=== PATIENT | male | born 1945 | race Caucasian/White ===

== ENCOUNTER 2022-03-26 19:28 | Emergency (ER) | payer OTHER ==
[~2022-03-26] VITALS: Ht 185.4 cm; Wt 95.3 kg
--- NOTE | 2022-03-26 19:28 | NUR ---
76 y/o male presents to ED via EMS c/o SOB, cough , fall , febrile, SOB. temp 101.2 dyspnea, generalized pain and weakness, LUONG w/o difficulty.
[2022-03-26] MEDS ORDERED: NS 1000ML 1,000 ML ONE ×2 (19:57→22:37)
--- NOTE | 2022-03-26 20:05 | DIREP ---
PROCEDURE:CHEST 1 VIEW COMPARISON:None. INDICATIONS:Fever FINDINGS: LUNGS/PLEURA:Extensive airspace opacity in the right mid and lower lung consistent with pneumonia. Bullous changes in the right upper lung. VASCULATURE:Normal. Unremarkable pulmonary vasculature. CARDIAC:Normal. No cardiac silhouette abnormality or cardiomegaly. MEDIASTINUM:Calcification in the aortic arch. BONES:Normal. No fracture or visible bony lesion. OTHER:Negative. CONCLUSION:Extensive airspace opacity in the right mid and lower lung consistent with pneumonia. Dictated by: Gerard Urias M.D. on 03/26/2022 at 08:03 PM
[2022-03-26 20:12] VITALS: BP_SYST 60; BP_SYST 96; BP_DIAS 60; BP_DIAS 96
[2022-03-26 20:17] LABS: BASOPHIL % 0.1 % (0.0-0.2); EOSINOPHIL % 0.1 % (0.0-5.0); LYMPHOCYTES # 0.27 10^3/uL1 (1.0-4.8); LYMPHOCYTES % 2.6 % (24.0-44.0); MEAN CORP HGB 30.9 pg (26-34); MONOCYTES # 0.7 10^3/uL (0.3-0.8); MONOCYTES % 6.3 % (5.0-12.0); NEUTROPHIL # 9.3 10^3/uL (1.8-7.7); NEUTROPHILS % 90.7 % (41.0-85.0); PLATELET COUNT 123 10^3/uL (150-400); RED CELL DISTRIBUTION WIDTH 13.9 % (11.5-14.5)
[2022-03-26 20:24] LABS: ABG PCO2 62.4 mmHg (35.0-45.0); BE(B) -1.3 mmol/L (-2.0-2.0); HCO3act 27.4 mmol/L (22.0-26.0); pO2 46.2 mmHg (80.0-100.0)
[2022-03-26] MEDS ORDERED: DUO 0.5-3(2.5) MG/3 ML IH STA (20:35)
[2022-03-26] MEDS ORDERED: DECADRON IH STA (20:35)
[2022-03-26] MEDS ORDERED: NS 1000ML 1,000 ML IV STA ×2 (20:35→22:39)
[2022-03-26] MEDS ORDERED: DECADRON ONE (20:36)
[2022-03-26] MEDS ORDERED: DUO 0.5-3(2.5) MG/3 ML IH ONE (20:36)
[2022-03-26 20:38] LABS: LYMPHOCYTE 2 % (25-36); MONOCYTE 4 % (3-9); SEGMENTED NEUTROPHILS 94 % (31-76)
[2022-03-26 20:46] LABS: CARBON DIOXIDE 29.9 mmol/L (20.0-32)
[2022-03-26] MEDS ORDERED: ZITHROMAX 500 MG in NS 250ML 250 ML IV STA (20:54)
[2022-03-26] MEDS ORDERED: ROCEPHIN 2,000 MG in NS 100ML 100 ML IV STA (20:54)
--- NOTE | 2022-03-26 21:00 | PCM.EKG ---
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
--- NOTE | 2022-03-26 21:18 | DIREP ---
PROCEDURE:XRAY HIP MIN 2VW-RT COMPARISON:None. INDICATIONS:Pain S/P fall FINDINGS: BONES:Normal. JOINTS:Normal. SOFT TISSUES:Arterial calcifications. OTHER:No additional findings. CONCLUSION:No fractures. Dictated by: Gerard Urias M.D. on 03/26/2022 at 09:17 PM
--- NOTE | 2022-03-26 22:25 | ER.PDOC ---
General Chief Complaint: Requesting Medical Care Stated Complaint: FALL Time seen by MD: 20:00 Source: patient, family, EMS, EMS notes reviewed Exam Limitations: no limitations History of Present Illness Initial Comments Patient fell in front of his porch and was found laying down. He complains of right hip pain. He does not remember hitting his head. He says that he has been very weak so he lost his balance and fell. When EMS arrived on scene, patient had a temperature 101.2. He received a gram of Tylenol and IV fluids because his blood pressure was also low and was brought here for further management. Patient was 73% on room air. Occurred: just prior to arrival Where: home Severity: moderate Injuries/Pain Location: lower extremity Context: Lost Balance Loss of Consciousness: Unsure Associated Symptoms: other (weakness) Past Medical History Medical History: cancer, COPD, other Surgical History: no surgical history Family History Significant Family History: no pertinent family hx Social History Smoking: greater than 1 pack/day Alcohol Use: none Review of Systems Constitutional: see HPI Respiratory: no symptoms reported Cardiovascular: no symptoms reported Gastrointestinal: no symptoms reported Musculoskeletal: see HPI All Other Systems: Reviewed and Negative Physical Exam General Appearance: WD/WN, Moderate Distress Head: No Evidence of Injury Eyes: bilateral eye normal inspection Neck: Tenderness Cardiovascular/Respiratory: Regular Rate, Rhythm, No M/R/G, Normal Peripheral Pulses, Tachycardia, Rales, Wheezing Gastrointestinal: Normal Bowel Sounds, No Organomegaly, No Pulsatile Mass, Non Tender, Soft Back: Normal Inspection, No CVA Tenderness, No Vertebral Tenderness Extremities: No Evidence of Injury, Normal Range of Motion, Non-Tender, No Pedal Edema 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 (03/26/22 19:49) Blood Culture (03/26/22 19:49) Ekg-Routine (03/26/22 19:49) Xr Chest 1v (03/26/22 19:49) Troponin I High Sensitivity (03/26/22 19:49) D-Dimer (03/26/22 19:49) Lactic Acid(Ml) (03/26/22 19:49) Procalcitonin (03/26/22 19:49) Influenza A&B (03/26/22 19:49) Covid19 Antigen Nicolasa Sofiya (03/26/22 19:49) Ipratropium/Albuterol Sulfate (Duo 0.5-3 (03/26/22 20:36) Dexamethasone Sodium Phosp/Pf (Decadron) (03/26/22 20:36) Xr Hip Rt 2v W/Pelvis (03/26/22 20:35) Ct Head Wo Contrast (03/26/22 20:35) Ct Cervical Spine (03/26/22 20:35) 0.9 % Sodium Chloride (Ns 1000ml) (03/26/22 20:35) Ipratropium/Albuterol Sulfate (Duo 0.5-3 (03/26/22 20:35) Dexamethasone Sodium Phosp/Pf (Decadron) (03/26/22 20:35) Cta Chest (03/26/22 20:53) Ceftriaxone Sodium (Rocephin) (03/26/22 20:54) Azithromycin (Zithromax) (03/26/22 20:54) 0.9 % Sodium Chloride (Ns 1000ml) (03/26/22 22:37) Ceftriaxone Sodium (Rocephin) (03/26/22 22:39) 0.9 % Sodium Chloride (Ns 100ml) (03/26/22 22:39) 0.9 % Sodium Chloride (Ns 1000ml) (03/26/22 22:39) 0.9 % Sodium Chloride (Ns 250ml) (03/26/22 23:01) Vital Signs Date Time Temp Pulse Resp B/P (MAP) Pulse Ox O2 Delivery O2 Flow Rate FiO2 03/26/22 22:18 88 26 96 S/T 45 03/26/22 20:55 22 92 03/26/22 20:55 114 26 94 Nasal Cannula* 2 28 03/26/22 20:42 114 26 84 Nasal Cannula* 2 28 03/26/22 20:12 98.6 114 26 60/96 (84) 70 Room Air* 0 21 03/26/22 20:12 98.6 114 26 03/26/22 20:12 98.6 114 26 70 Administered Medications Medications (Trade) Dose Ordered Sig/Irena Route PRN Reason Start Time Stop Time Status Last Admin Dose Admin Albuterol/ Ipratropium (Duo 0.5-3(2.5) Mg/3 ml) 3 ml STAT STAT IH 03/26/22 20:35 03/26/22 20:39 DC 03/26/22 20:41 3 ML Ceftriaxone Sodium 2000 mg/ Sodium Chloride 100 ml @ 100 mls/hr STAT STAT IV 03/26/22 20:54 03/26/22 21:53 UNV 03/26/22 22:47 100 MLS/HR Sodium Chloride 1,000 ml @ 1,200 mls/hr Q50M STAT IV 03/26/22 20:35 03/26/22 21:24 DC 03/26/22 19:00 1,200 MLS/HR Sodium Chloride 1,000 ml @ 1,200 mls/hr Q50M STAT IV 03/26/22 22:39 03/26/22 23:28 03/26/22 22:56 1,200 MLS/HR Laboratory Tests Test 03/26/22 00:00 03/26/22 19:45 03/26/22 20:00 03/26/22 20:20 Influenza Type A Antigen NEGATIVE (NEG) Influenza Type B Antigen NEGATIVE (NEG) SARS-CoV-2 Antigen (Rapid) NEGATIVE (NEGATIVE) White Blood Count 10.3 10^3/uL (4.5-11.0) Red Blood Count 5.12 10^6/uL (4.50-5.90) Hemoglobin 15.8 g/dL (13.9-16.3) Hematocrit 51.3 % (37.0-53.0) Mean Corpuscular Volume 100.2 fL (78-100) H Mean Corpuscular Hemoglobin 30.9 pg (26-34) Mean Corpuscular Hemoglobin Concent 30.8 g/dL (33-36.5) L Red Cell Distribution Width 13.9 % (11.5-14.5) Platelet Count 123 10^3/uL (150-400) L Mean Platelet Volume 9.0 fL (7.8-11.0) Neutrophils (%) (Auto) 90.7 % (41.0-85.0) *H Lymphocytes (%) (Auto) 2.6 % (24.0-44.0) *L Monocytes (%) (Auto) 6.3 % (5.0-12.0) Neutrophils # (Auto) 9.3 10^3/uL (1.8-7.7) H Lymphocytes # (Auto) 0.27 10^3/uL1 (1.0-4.8) L Monocytes # (Auto) 0.7 10^3/uL (0.3-0.8) Absolute Immature Granulocyte (auto 0.02 10^3 u/L (0-2) Absolute Eosinophils (auto) 0.0 10^3/uL (0.0-0.2) Immature Granulocytes % 0.20 % (0.00-0.50) Eosinophils % 0.1 % (0.0-5.0) Basophils % 0.1 % (0.0-0.2) Basophils # 0.0 10^3/uL (0.0-0.1) Prothrombin Time 10.9 SEC (9.1-11.5) Prothrombin Time INR (Non-Therap) 1.1 Activated Partial Thromboplast Time 24.5 SEC (22.5-33.1) D-Dimer 20.67 mg/L (0.19-0.49) *H Sodium Level 141 mmol/L (132-145) Potassium Level 3.8 mmol/L (3.6-5.2) Chloride Level 105.0 mmol/L (96-109) Carbon Dioxide Level 29.9 mmol/L (20.0-32) Anion Gap 9.9 Blood Urea Nitrogen 31 mg/dL (7-18) H Creatinine 1.29 mg/dL (0.59-1.40) Estimated GFR () 65.3 (>/=60) Est GFR (CKD-EPI)(Non-Afr [place]) 54.0 (>/=60) BUN/Creatinine Ratio 24.0 Glucose Level 155 mg/dL (70-110) H Lactic Acid Level 2.0 mmol/L (0.5-1.9) H Calcium Level 8.9 mg/dL (8.4-10.5) Total Bilirubin 1.6 mg/dL (0.2-1.0) H Aspartate Amino Transferase (AST) 24 U/L (0-35) Alanine Aminotransferase (ALT) 19 U/L (12-78) Alkaline Phosphatase 102 U/L (50-136) Total Creatine Kinase 508 U/L (39-308) H Creatine Kinase MB 5.4 ng/mL (0.5-3.6) H Troponin I High Sensitivity 26 ng/L (0-75) Pro-B-Type Natriuretic Peptide 1387 pg/mL (0-450) H Total Protein 6.9 g/dL (6.4-8.2) Albumin 2.9 g/dL (3.4-5.0) L Globulin 4.0 Albumin/Globulin Ratio 0.725 Procalcitonin 1.87 ng/mL (0.05-0.5) *H Blood Gas Sample Site RT RADIAL ARTERY Blood pH 7.260 (7.350-7.450) Blood Gas PCO2 62.4 mmHg (35.0-45.0) H Blood Gas PO2 46.2 mmHg (80.0-100.0) L Blood Gas HCO3 27.4 mmol/L (22.0-26.0) H Blood Gas Base Excess -1.3 mmol/L (-2.0-2.0) Ceasar Test POSITIVE Arterial Blood Oxygen Saturation 74.2 % (94.0-97.00) L Deoxyhemoglobin 24.8 % (0.0-5.0) H Carboxyhemoglobin 3.4 % (0.0-3.9) Methemoglobin 0.4 % (0.00-5.0) Total Hemoglobin 15.7 % (12.0-17.8) Total Oxygen Concentration 15.7 % (13.5-17.5) Blood Gas Temperature 37.0 Oxygen Delivery Method NASAL CANNULA FiO2 28.0 % (20-101) Total Carbon Dioxide 29.3 mmol/L (23-27) H Segmented Neutrophils 94 % (31-76) H Lymphocytes 2 % (25-36) L Monocytes 4 % (3-9) Platelet Estimate SLIGHTLY DECREASED Platelet Morphology NORMAL Progress Progress CTA chest: No evidence for pulmonary embolism. 2. Patchy areas of consolidation scattered throughout the right lung with milder infiltrates involving the left lower lobe. 3. Questionable 8 x 7 mm pulmonary nodule left upper lobe .Please consider the following recommendations after clinical assessment of risk factors. For 6-8 mm nodules: In low risk patients, initial follow-up CT at 6-12 months, then 18-24 months if no change. In high risk patients, initial follow-up CT at 3-6 months, then 9-12 and 24 months if no change. 4. Dense coronary vascular calcifications. EKG/XRAY/CT/US EKG: NSR EKG Comments: HR 106, sinus tachycardia ER DEPART Departure Time of Disposition: 23:07 Disposition: [address] [place] [address] Impression: Primary Impression: Sepsis Additional Impressions: Acute respiratory failure with hypoxia Pneumonia COPD with exacerbation Generalized weakness Multiple contusions Condition: Critical Referrals: [facility] REVIEW MANAGER (PCP) PRIMARY CARE PROVIDER Comments Transfer to [place] ED for Dr. Franks Duration or Time Spent with Pa: 60 min Critical Care Note Total Time (mins): 60 Problem Qualifiers Primary Impression: Sepsis Sepsis type: sepsis due to unspecified organism Sepsis acute organ dysfunction status: unspecified Qualified Codes: A41.9 - Sepsis, unspecified organism Additional Impressions: Pneumonia Pneumonia type: due to unspecified organism Laterality: unspecified laterality Lung location: unspecified part of lung Qualified Codes: J18.9 - Pneumonia, unspecified organism DANYELLE MEDINA MD Mar 26, 2022 22:25
--- NOTE | 2022-03-26 22:29 | DIREP ---
PROCEDURE:CT HEAD OR BRAIN W/O CONTRAST COMPARISON:None. INDICATIONS:pain S/P fall TECHNIQUE:CT images were created without intravenous contrast. FINDINGS: VENTRICLES:The ventricles are normal in size and configuration. CEREBRUM:Normal cerebral morphology with appropriate villa white matter differentiation. CEREBELLUM:Negative. BRAINSTEM:Negative. BASAL CISTERNS:Negative. HEMORRHAGE (Vol L*W*H*.52):No MASS LESION:No ACUTE INFARCT:No SKULL:Normal. SINUSES:Normal. OTHER:None CONCLUSION:Normal examination. Dictated by: Zach Baum MD on 03/26/2022 at 10:26 PM
--- NOTE | 2022-03-26 22:33 | DIREP ---
PROCEDURE:CT CERVICAL SPINE WITHOUT CONTRAST TECHNIQUE:Axial cuts were obtained through the cervical spine. The images were viewed at bone and soft tissue settings. Sagittal and coronal reconstructions are provided. COMPARISON:None. INDICATIONS:pain FINDINGS: ALIGNMENT:Normal. VERTEBRAE:Normal. PARASPINAL AREA:Normal. OTHER:No additional findings. CERVICAL DISC LEVELS Mild C4-5 and C5-6 degenerative disc space narrowing with minimal spondylosis. Right C4-5 and C5-6 facet arthropathy. CONCLUSION: 1. No fractures or subluxations. 2. Mild C4-5 and C5-6 degenerative disc disease. Dictated by: Zach Baum MD on 03/26/2022 at 10:30 PM
[2022-03-26] MEDS ORDERED: NS 100ML 100 ML IV ONE (22:39)
[2022-03-26] MEDS ORDERED: ROCEPHIN ONE (22:39)
--- NOTE | 2022-03-26 22:40 | DIREP ---
PROCEDURE:CTA CHEST COMPARISON:None. INDICATIONS:Hypoxia TECHNIQUE:Post contrast axial images through the chest with multiplanar MIP/3D reconstructions. FINDINGS: PULMONARY ARTERIES:Patent. LUNGS:Patchy areas of infiltrate and consolidation scattered throughout the right lung with milder patchy infiltrates in the inferior left lower lobe. The appearance is typical for pneumonia. Moderate to severe emphysematous changes. 8 x 7 mm irregular nodular density lateral left upper lobe image 34 series 7. Question pulmonary nodule. PLEURA:Normal. CARDIAC:Dense coronary vascular calcifications. Normal cardiac size. RV:LV ratio (norm <0.9): Not applicable in the absence of pulmonary embolism. THORACIC AORTA:Atherosclerotic calcifications without aneurysmal dilatation. MEDIASTINUM:Nonenlarged right greater than left hilar lymph nodes. No bulky mediastinal lymphadenopathy. THYROID:Normal. BONES:Normal. OTHER:No additional findings. CONCLUSION: 1. No evidence for pulmonary embolism. 2. Patchy areas of consolidation scattered throughout the right lung with milder infiltrates involving the left lower lobe. 3. Questionable 8 x 7 mm pulmonary nodule left upper lobe .Please consider the following recommendations after clinical assessment of risk factors. For 6-8 mm nodules: In low risk patients, initial follow-up CT at 6-12 months, then 18-24 months if no change. In high risk patients, initial follow-up CT at 3-6 months, then 9-12 and 24 months if no change. 4. Dense coronary vascular calcifications. Dictated by: Zach Baum MD on 03/26/2022 at 10:33 PM
--- NOTE | 2022-03-26 23:00 | NUR ---
Transfer arrangements to [place] Dr. MEDINA spoke with SLOAN Walters RN
[2022-03-26] MEDS ORDERED: NS 250ML 250 ML ONE (23:01)
--- NOTE | 2022-03-26 23:15 | NUR ---
Accepting MD Dr. Franks at [facility] accepted pt
--- NOTE | 2022-03-26 23:46 | NUR ---
[facility] Dispatch notified [facility] transfer. EMS paged out
[2022-03-27 00:20] VITALS: BP 106/67
[2022-03-27] MEDS ORDERED: NICOTINE 21 MGPATCH TD ONE (00:20)
--- NOTE | 2022-03-27 00:20 | NUR ---
Nicotine patch 21 mg applied to right back upper arm.
== END 2022-03-27 00:23 ==
LOC: ER 19:28
DX: A41.9 Sepsis, unspecified organism (principal); S70.01XA Contusion of right hip, initial encounter; Z20.822 Contact with and (suspected) exposure to COVID-19; F17.210 Nicotine dependence, cigarettes, uncomplicated; J18.9 Pneumonia, unspecified organism; J44.1 Chronic obstructive pulmonary disease with (acute) exacerbation; R11.2 Nausea with vomiting, unspecified; J96.01 Acute respiratory failure with hypoxia; W01.10XA Fall on same level from slipping, tripping and stumbling with subsequent striking against unspecified object, initial encounter; Y93.89 Activity, other specified; Y92.009 Unspecified place in unspecified non-institutional (private) residence as the place of occurrence of the external cause; Y99.8 Other external cause status
CPT/HCPCS: 99291; 70450; 96365; 96361; 71045; 96367; 87426; 71275; 72125; 73502; 80053; 85025; 36415; 85379; 84484; 87040 ×2; 83605 ×2; 84145; 87804 ×2; 82553; 83880; 82550; 85610; 85730; 93005; 82803; 36600; 94640; J7050 ×2; J7030 ×2; J1100; J0696; J0456; Q9965; 94660; 96366